=== PATIENT | female | born 1935 | race Caucasian/White ===

== ENCOUNTER → 2017-01-05 | Outpatient (CLI) | payer MEDICARE ==
[~2017-01-05] MED LIST: AMIT150T; KCL20TCR PO; MECL-124 PO; METH4TAB PO; NAPR-243 PO; NITR-65 PO; TRM50T PO
--- NOTE | 2017-01-05 15:09 | Diagnostic Imaging Report ---
INDICATION: Left-sided maxillary pain. TECHNIQUE: Routine non contrast-enhanced axial images were obtained from the skull base to the vertex. COMPARISON: 05/29/2010 FINDINGS: The ventricles and cortical sulci are diffusely prominent, compatible with age-related volume loss. There are confluent areas of abnormal, low attenuation in the periventricular white matter. This is consistent with chronic small vessel ischemic changes. There is no midline shift or mass-effect. No acute intra-axial hemorrhage is seen. There are no abnormal areas of increased or decreased density to suggest acute hemorrhage or edema. No extra-axial masses or collections are present. The bony calvarium is intact. The visualized paranasal sinuses are unremarkable. The mastoid air cells are clear. IMPRESSION: 1. No acute intracranial abnormality. No CT evidence of mass, acute infarct or intracranial hemorrhage. 2. Chronic small vessel ischemic changes in the deep white matter. Dictated by: Dictated on workstation # [id number]
== END ==
LOC: RAD 14:06
PROVIDERS: ATTEND Internal Medicine
DX: R51 Headache (principal); R20.0 Anesthesia of skin
CPT/HCPCS: 70450

== ENCOUNTER → 2017-05-12 | Outpatient (CLI) | payer MEDICARE ==
--- NOTE | 2017-05-12 18:35 | Diagnostic Imaging Report ---
INDICATION: Fall. Pain to the left second and third toes. FINDINGS: Three views of the left foot show no fracture, dislocation, or other acute bony abnormality. There are advanced degenerative changes at the metatarsophalangeal joint of the first digit. IMPRESSION: There are degenerative changes present. No acute abnormality is seen. Dictated by: Dictated on workstation # [id number]
== END ==
LOC: RAD 17:17
PROVIDERS: ATTEND Nurse Practitioner Family
DX: M19.072 Primary osteoarthritis, left ankle and foot (principal)
CPT/HCPCS: 73630

== ENCOUNTER 2017-07-29 14:44 | Outpatient (CLI) | payer MEDICARE ==
[~2017-07-29] VITALS: Ht 162.6 cm; Wt 64.2 kg
[2017-07-29] MEDS ORDERED: AMIT25TA9 PO (15:09)
[2017-07-29 15:13] VITALS: BP 129/74
[2017-07-29] MEDS ORDERED: TRAM50TA2 PO (15:29)
[2017-07-29] MEDS ORDERED: LORA0.5T PO (15:29)
== END 2017-07-29 15:51 | disposition home or self-care (01) ==
LOC: PREOP 14:44
PROVIDERS: ATTEND Podiatrist Foot & Ankle Surgery
DX: Z01.818 Encounter for other preprocedural examination (principal); M86.642 Other chronic osteomyelitis, left hand
CPT/HCPCS: 87081

== ENCOUNTER 2017-07-31 06:08 | Day surgery (SDC) | payer MEDICARE ==
--- NOTE | 2017-07-30 12:31 | HISTORY AND PHYSICAL ---
DATE OF SERVICE: 07/31/2017 PREOPERATIVE HISTORY AND PHYSICAL DATE OF ADMISSION: 07/31/2017. HISTORY OF PRESENT ILLNESS: The patient is an 82-year-old white female, seen in my office on 07/29/2017 for preop evaluation for Dr. Samuel. She has had a sore on distal left second toe with x-ray findings suspicious for osteomyelitis. She denies night sweats, chills or fever, but has had increasing fatigue. She has no known history of peripheral neuropathy or diabetes. She denies chest pain, has had increased fatigue, but not dyspnea on exertion. PAST MEDICAL HISTORY: Significant for depression, which has been under control, we have actually been able to taper her amitriptyline down significantly over the years. She reports sleeping well and reports her depression is in remission. In the past, she has had hypertension, but with weight loss, she is now off all antihypertensive medication. She has no known past history of pulmonary or cardiac disease. SOCIAL HISTORY: She is independent, living alone at home. PHYSICAL EXAMINATION: GENERAL: Reveals a pleasant elderly white female, who appears to be in no acute distress. VITAL SIGNS: Blood pressure 128/78, weight is 140.4 pounds, is down 1.6 pounds, but still in her usual weight range. CHEST: Clear. CARDIOVASCULAR: Reveals regular rate and rhythm without murmur, S3 or S4. She has no evidence for pedal edema and no foot erythema or tenderness is noted. EXTREMITIES: Show no cyanosis or clubbing either. LABORATORY DATA: Blood tests were obtained. She does have mild ALT and AST elevation that has been intermittent and in review of her records, I believe that she has had negative hepatitis profile studies and is at low risk. Findings are most compatible with fatty liver disease as she reports no alcohol history. Her CBC reveals no abnormalities and interestingly, her sed rate is only 10. TSH is at the upper limits of normal at 4.62. ASSESSMENT AND PLAN: 1. Reported osteomyelitis per x-ray evaluation per Dr. Samuel involving the second left toe, there are no contraindications to proceeding with the planned partial second distal left toe amputation. 2. 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 Chronic viral Hepatitis unlikely but will check viral screening panel. Job ID: [id number] DocumentID: [id number] Dictated Date: 07/29/2017 16:39:08 Manager Clinical Pharmacy Date: 07/29/2017 17:31:41 Dictated By: PAZ SANDHU MD MTDD
[~2017-07-31] VITALS: Ht 162.6 cm; Wt 64.2 kg
[~2017-07-31 06:08] MED LIST changes: +AMIT25TA9 PO; +LORA0.5T PO; +TRAM50TA2 PO
[2017-07-31] MEDS ORDERED: LACTATED RINGERS 1,000 ML IV PRN (06:40)
[2017-07-31] MEDS ORDERED: BUPIVACAINE 0.5% 30 ML (SENSORCAINE) VIAL ONE (06:52)
[2017-07-31] MEDS ORDERED: ceFAZolin 1,000 MG (ANCEF) VIAL ONE (06:52)
[2017-07-31] MEDS ORDERED: NS (IVPB) 50 ML ONE (06:53)
[2017-07-31] MEDS ORDERED: LIDOCAINE PF 2% 5 ML (XYLOCAINE) VIAL ONE (06:56)
[2017-07-31] MEDS ORDERED: proPOfol 200 MG/20 ML (DIPRIVAN) VIAL IV ONE (06:56)
[2017-07-31] MEDS: LACTATED RINGERS 1,000 ML IV PRN ×2 (06:56→08:00)
[2017-07-31] MEDS ORDERED: MIDAZOLAM 2 MG/2 ML (VERSED) VIAL ONE (06:56)
[2017-07-31] MEDS ORDERED: ONDANSETRON 4 MG/2 ML (SDV) Z0FRAN ONE (06:56)
[2017-07-31] MEDS ORDERED: ROCURONIUM 50 MG/5 ML (ZEMURON) VIAL IV ONE (06:56)
[2017-07-31] MEDS ORDERED: LIDOCAINE JELLY 2% (XYLOCAINE) 5 ML TUBE ONE (06:56)
[2017-07-31] MEDS ORDERED: LACTATED RINGERS 0 ML IV ONE (06:56)
[2017-07-31] MEDS ORDERED: fentaNYL INJECTION 100 MCG/2 ML AMP ONE (06:57)
--- NOTE | 2017-07-31 07:01 | Progress Note-Pre Operative ---
Pre-Operative Progress Note H&P Reviewed The H&P was reviewed, patient examined and no changes noted. Date Seen by Provider: Jul 31, 2017 Time Seen by Provider: 07:00 Date H&P Reviewed: Jul 31, 2017 Time H&P Reviewed: 07:01 Pre-Operative Diagnosis: Osteomyelitis left 2nd toe ORQUIDEA KHAN DPM Jul 31, 2017 7:01 am
[2017-07-31] MEDS ORDERED: CATHETER FLUSH 10 ML SYR IV PRN (07:15)
[2017-07-31] MEDS ORDERED: ceFAZolin 1 GM/NS 50 ML IVPB IV ONE ×2 (07:15)
[2017-07-31 07:20] VITALS: BP 165/93
[2017-07-31] MEDS ORDERED: SEVOFLURANE (ULTANE) 15 ML INHAL SOLN ONE ×3 (07:23→07:42)
[2017-07-31] MEDS ORDERED: PHENYLEPHRINE 100 MCG/ML 10 ML (ANESTHESIA) SYR ONE (07:58)
[2017-07-31] MEDS ORDERED: LACTATED RINGERS 1,000 ML IV SCH ×2 (07:58)
--- NOTE | 2017-07-31 07:58 | Progress Note-Post Operative ---
Post-Operative Progess Note Surgeon (s)/Medical Record Coder (s) Surgeon ORQUIDEA KHAN DPM Medical Record Coder: none Pre-Operative Diagnosis Osteomyelitis left 2nd toe Post-Operative Diagnosis same Procedure & Operative Findings Date of Procedure 07/31/17 Procedure Performed/Findings Partial amputation of the left 2nd toe Anesthesia Type general Estimated Blood Loss Estimated blood loss (mL): minimal Specimens/Packing Specimens Removed left 2nd distal phalanx and distal portion of the middle phalanx Packing: none ORQUIDEA KHAN DPM Jul 31, 2017 7:58 am
[2017-07-31] MEDS ORDERED: morphine INJ 10 MG/ML 1ML (SYR OR VIAL) IVP PRN (08:15)
[2017-07-31] MEDS ORDERED: ONDANSETRON 4 MG/2 ML (SDV) Z0FRAN IVP PRN (08:15)
[2017-07-31] MEDS ORDERED: MEPERIDINE (DEMEROL) INJ 50 MG/ML IVP PRN (08:15)
[2017-07-31 09:00] VITALS: BP 133/79
--- NOTE | 2017-07-31 09:02 | Diagnostic Imaging Report ---
INDICATION: Postop evaluation COMPARISON: 05/12/2017 FINDINGS: Two views of the left foot are obtained. There are new postoperative changes of amputation of the second toe at the level of the middle phalanx. No additional new abnormality or interval change is seen from the recent prior study. There are severe degenerative changes with hallux valgus deformity and bunion formation at the first MTP joint similar to the prior exam. Degenerative spurring of the interphalangeal joints and of the midfoot also appears similar to the prior study. Spurring of the os calcis again demonstrated. IMPRESSION: 1. New postoperative changes of amputation through the second toe at the level of the middle phalanx without evidence of complicating process. 2. Diffuse degenerative changes are similar to the recent prior study. Dictated by: Dictated on workstation # [id number]
--- OUTSIDE RECORDS SUMMARY | 2017-07-31 09:10 | XMS REPORT | Continuity of Care Document ---
Author Author [facility] Organization [facility] Address Unknown Phone Unavailable Allergies Active Description Code Type Severity Reaction Onset Reported/Identified Relationship to Patient Clinical Status Yes codeine [id number] Drug Allergy Mild N/A 02/27/2009 Yes Sulfa (Sulfonamide Antibiotics) [id number] Drug Allergy Mild N/A 02/27/2009 Medications Problems Date Dx Coded Attending Type Code Diagnosis Diagnosed By 03/02/2013 TATY CLOUD DO Ot 716.97 ARTHROPATHY NOS-ANKLE 03/02/2013 TATY CLOUD DO Ot 719.07 JOINT EFFUSION-ANKLE 08/01/2013 EDGAR MIRANDA DO V04.81 FLU SHOT 01/06/2017 PAZ SANDHU MD Ot R20.0 ANESTHESIA OF SKIN 01/06/2017 PAZ SANDHU MD Ot R51 HEADACHE 01/07/2017 PAZ SANDHU MD Ot R20.0 ANESTHESIA OF SKIN 01/07/2017 PAZ SANDHU MD Ot R51 HEADACHE 02/06/2017 PAZ SANDHU MD Ot R20.0 ANESTHESIA OF SKIN 02/06/2017 PAZ SANDHU MD Ot R51 HEADACHE 05/12/2017 PAZ SANDHU MD Ot V76.12 OTH SCREEN MAMMO-MALIGN NEOPLASM OF EJRRY 05/12/2017 PAZ SANDHU MD Ot R20.0 ANESTHESIA OF SKIN 05/12/2017 PAZ SANDHU MD Ot R51 HEADACHE 05/16/2017 THAD GUILLEN APRN Ot M19.072 PRIMARY OSTEOARTHRITIS, LEFT ANKLE AND F 06/03/2017 THAD GUILLEN APRN Ot M19.072 PRIMARY OSTEOARTHRITIS, LEFT ANKLE AND F Procedures Code Description Performed By Performed On G0008 FLU ADMINISTRATION (MEDICARE ONLY) 08/01/2013 Results Encounters ACCT No. Visit Date/Time Discharge Status Pt. Type Provider Facility Loc./Unit Complaint [id number] 05/12/2017 17:17:00 2016 23:59:59 CLS Outpatient THAD GUILLEN APRN [facility] RAD RIGHT FOOT PAIN [id number] 01/05/2017 14:06:00 2016 23:59:59 CLS Outpatient PAZ SANDHU MD [facility] RAD L MAXILLARY PAIN L SIDED NUMBNESS [id number] 02/02/2014 07:46:00 2013 23:59:59 CLS Outpatient PAZ SANDHU MD [facility] RAD SCREENING [id number] 03/02/2013 17:01:00 2012 23:59:59 CLS Outpatient [id number] 03/02/2013 17:30:00 2012 20:05:00 DIS Emergency TATY CLOUD DO [facility] ER SWOLLEN R ANKLE [id number] 08/01/2013 17:57:00 08/01/2013 23: 59:59 CLS Outpatient EDGAR MIRANDA DO
--- OUTSIDE RECORDS SUMMARY | 2017-07-31 09:10 | XMS REPORT ---
Author EDGAR Adhikari Organization [employer] Address Unknown Phone Unavailable Care Team Providers Care Electronics Hardware Design Engineer Name Role Phone EDGAR MIRANDA CP Unavailable Allergies No Known Allergies Problems Problem Type Condition Code Onset Dates Condition Status Assessment Encounter for immunization Z23 Active Problem Need for prophylactic vaccination and inoculation, Influenza V04.81 Active Medications No Known Medications Procedures Procedure Coding System Code Date SINGLE IMMUNIZATION ADMIN CPT-4 43866 Oct 03, 2015 FLUARIX QUAD (3 & UP)-GSK-2014 CPT-4 58997 Oct 03, 2015 Results No Known Results Immunizations Vaccine Administration Date FLUARIX QUAD (3 & UP)-GSK-2014Oct 03, 2015 Summary Purpose [employer] Submission
[2017-07-31 09:30] VITALS: BP 129/71
[2017-07-31 10:00] VITALS: BP 133/73
--- NOTE | 2017-07-31 11:09 | Physical Therapy Ortho Eval ---
PT Orthopedic Evaluation Type of Surgery osteomyelitis left foot Prior Level of Function Current Living Status: Alone Locomotion (Upon Admit): Doris Mccarthy Subjective Subjective Reports she lives alone but has neighbors that will assist; feels she will be able to manage at home; reports she bought easy to warm items at the grocery prior to surgery. Entry Into Home: Stairs With Railing Motor Control Motor Control: Motor Control WNL ROM ROM: WFL Strength Strength: WFL Transfer Transfers (B, C, W/C) (FIM): 5 (post treatment, mod indep) Gait Gait Assistive Device: FWW Right Lower Extremity: Right Weight Bearing Status RLE: Full Weight Bearing Left Lower Extremity: Left Weight Bearing Status LLE: Partial Weight Bearing Gait (FIM): 5 Distance (FIM): 3=150 ft Gait Level of Assist: 5 Summary/Comments skilled cueing and reminders for PWB status with explanation as to why it is important; pt verbalized and demonstrated understanding. Treatment Rendered Treatment: Gait Train, Step Train Assessment/Goals Goal Time Frame: 1 Visit Plan Treatment Plan: Discharge, Education, Gait Treatment Duration: 1 visit PT/Family Agrees to Plan: Yes Time Time In: 1015 Time Out: 1035 Total Billed Treatment Time: 20 Billed Treatment Time visit EVL 20 Yes PT/OT Therapy GCodes Therapy Functional Limitation: Physical Therapy Test(s)/Tool used to determine: Level of Assistance Scale Functional Limitation-Current Charge Code: MOBCUR Modifier: CJ Functional Limitation-Goal Charge Code: MOBGOAL Modifier: CI Functional Limitation-D/C Charge Codes: MOBDC Modifier: CI TAMIKO CHAPIN PT Jul 31, 2017 11:09
--- NOTE | 2017-07-31 15:55 | OPERATIVE REPORT ---
DATE OF SERVICE: 07/31/2017 SURGEON: Tracee Samuel DPM PREOPERATIVE DIAGNOSIS: Osteomyelitis, left 2nd toe. POSTOPERATIVE DIAGNOSIS: Osteomyelitis, left 2nd toe. PROCEDURE: Partial amputation, left second toe. WOUND CLASS: Contaminated. ANESTHESIA: General. HEMOSTASIS: Pneumatic ankle tourniquet at 250 mmHg. INDICATIONS: This 82-year-old female presented to the office with an open wound to the left second toe. X-ray changes noted to the distal phalanx indicated osteomyelitis. Various treatment options were discussed with the patient including long-term antibiotics as well as partial amputation of the left second toe. The patient has opted for surgical intervention after risks and complications were discussed at length. No guarantees were extended to the patient and she is willing to proceed. DESCRIPTION OF PROCEDURE: The patient was brought back to the operating table placed in secure supine position. Appropriate time out was performed. A pneumatic ankle tourniquet was placed on the left lower extremity over several layers of padding. General anesthetic was then induced. The left foot was then prepped and draped in normal sterile manner. The left foot was then elevated and allowed to exsanguinate after which the tourniquet was inflated to 250 mmHg. Attention was then directed to the distal aspect of left second toe, where full-thickness ulceration was noted to the distal aspect of the digit. Two curvilinear incisions were created. The first was mid diaphysis of the middle phalanx from the dorsal aspect of the toe from medial to lateral, the second began at the same area and went to the distal aspect creating a plantar flap. The distal phalanx was disarticulated at this point with sharp dissection down to bone. The specimen was sent for gross and microscopic evaluation. Prior to being sent; however, a sample of the distal phalanx bone was taken and sent for culture and sensitivity. Next, a section of bone was taken from the middle phalanx with a power sagittal saw. This specimen was also sent to confirm appropriate bone at this point. There is no yvette necrosis or abscess associated with the digit at this time. The wound was flushed with copious amounts of normal saline. Prior to closure, a swab culture was taken of the remaining digit, left second toe. Closure was then performed with 4-0 Prolene in a simple interrupted type stitch. The tourniquet was released noting appropriate cap refill time to all digits of the left foot. It did take some time for the capillary refill time to come into normal limits for the flap of the amputation left second toe. Direct postoperative injection consisted of 5 mL of 0.5% Marcaine injected in a digital block. Postoperative dressing consisted of Betadine soaked Adaptic, sterile 4 x 4, sterile Kerlix; all secured with a Coban wrap. The patient is currently on an oral antibiotic. She will continue with that. She was given a prescription for tramadol as well. She will follow up in my office in 10 days' period of time or sooner if necessary. Job ID: [id number] DocumentID: [id number] Dictated Date: 07/31/2017 08:11:53 Facility Maintenance Helper Date: 07/31/2017 14:54:33 Dictated By: BRENT GREENE
== END 2017-07-31 11:30 | disposition home or self-care (01) ==
LOC: SDC 06:08
PROVIDERS: ATTEND Podiatrist Foot & Ankle Surgery
DX: M86.9 Osteomyelitis, unspecified (principal); I10 Essential (primary) hypertension; F32.9 Major depressive disorder, single episode, unspecified; Z79.899 Other long term (current) drug therapy
CPT/HCPCS: 73620; 87070; 87075; 87205

== ENCOUNTER 2019-07-03 10:15 | Emergency (ER) | payer MEDICARE ==
[~2019-07-03] VITALS: Ht 64 cm; Wt 61.0 kg
[2019-07-03 10:20] VITALS: BP 188/102
[2019-07-03] MEDS ORDERED: FLUORESCEIN (FLUOR-I-STRIPS) 1 MG STRP ONE (10:35)
[2019-07-03] MEDS ORDERED: TETRACAINE 0.5% OPHTH SOLN 4 ML BTL (SINGLE DOSE ONLY) ONE (10:35)
[2019-07-03] MEDS ORDERED: TETRACAINE 0.5% OPHTH SOLN 4 ML BTL (SINGLE DOSE ONLY) OU ONE (10:45)
[2019-07-03] MEDS ORDERED: FLUORESCEIN (FLUOR-I-STRIPS) 1 MG STRP OU ONE (10:45)
[2019-07-03] MEDS ORDERED: RX-TOBRAMYCIN 0.3% OPHTH (TOBREX) SOLN 5 ML BTL OP STA (11:16)
--- NOTE | 2019-07-03 11:25 | ED EENT ---
History of Present Illness General Chief Complaint: Eye Problems Stated Complaint: R EYE REDNESS Nursing Triage Note: PT CO OF R EYE REDNESS, PT STATES STARTED ITCHING YESTERDAY, PT HAS REDDNESS AND BLURRED VISION TODAY PT STATES HAS PAIN IN EYE Source: patient Exam Limitations: no limitations History of Present Illness Date Seen by Provider: Jul 03, 2019 Time Seen by Provider: 10:36 Initial Comments Here with complaint of redness and irritation to the right eye. Noted that she had itching of the eye yesterday. Does not recall any specific injury. She does have history of shingles on that side of the face last year but no active spots. She thought there may have been some bumps that are on the side of her face. Does not believe that she has an active infection. Denies discharge. Denies vision changes. Pain seems to be centered around that eye. Timing/Duration: gradual, yesterday Severity: moderate Location: eye (R) Prearrival Treatment: no prearrival treatment Associated Symptoms: facial pain/swelling; No fever, No nasal congestion/drainage, No sinus infection, No tooth pain Allergies and Home Medications Allergies Coded Allergies: Sulfa (Sulfonamide Antibiotics) (Unverified Allergy, Mild, 07/29/17) codeine (Unverified Allergy, Mild, 07/29/17) Home Medications Amitriptyline HCl 25 Mg Tablet, 25 MG PO HS, (Reported) Lorazepam 0.5 Mg Tablet, 0.5 MG PO PRN, (Reported) Tramadol HCl 50 Mg Tablet, 50 MG PO PRN, (Reported) Patient Home Medication List Home Medication List Reviewed: Yes Review of Systems Review of Systems Constitutional: No chills, No fever Eyes: See HPI; Denies Decreased Acuity, Denies Photophobia Nose: no symptoms reported Throat: no symptoms reported Respiratory: no symptoms reported Skin: no symptoms reported Neurological: No Symptoms Reported Past Nsdhrwq-Oojkem-Iqpnaa Hx Past Med/Social Hx: Reviewed Nursing Past Med/Soc Hx Patient Social History Alcohol Use: Denies Use Recreational Drug Use: No Smoking Status: Never a Smoker Recent Foreign Travel: No Contact w/Someone Who Travel: No Recent Infectious Disease Expo: No Recent Hopitalizations: No Immunizations Up To Date Tetanus Booster (TDap): Unknown Date of Pneumonia Vaccine: February 02, 2009 Date of Influenza Vaccine: Jul 13, 2017 Seasonal Allergies Seasonal Allergies: No Past Medical History Surgeries: Yes (BACK, RT FOOT, RIGHT TOTAL SHOULDER, TOTAL LT KNEE) Appendectomy Respiratory: No Cardiac: No Neurological: No Reproductive Disorders: No Sexually Transmitted Disease: No HIV/AIDS: No Gastrointestinal: No Musculoskeletal: Yes Arthritis Endocrine: No Loss of Vision: Bilateral Hearing Impairment: Denies 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 7.0oz. 64.653871gt; 148.00 BMI Method:Stated General Appearance: WD/WN, no apparent distress Eyes: right eye conjunctival inflammation, right eye corneal abrasion (3 x 3 mm in the lateral lower quadrant of the eye. Does not cover pupil.); bilateral eye normal inspection, bilateral eye PERRL, bilateral eye EOMI Neck: full range of motion, supple Cardiovascular: regular rate, rhythm, no murmur Respiratory: lungs clear, normal breath sounds Neurologic/Psychiatric: alert, oriented x 3 Progress/Results/Core Measures Results/Orders My Orders Orders - FRANCK MARTINEZ MD Tetracaine 0.5% Ophth Shelby Sdv (Tetracai (07/03/19 10:45) Fluorescein Strips (Yreok-M-Ntpyax) (07/03/19 10:45) Fluorescein Strips (Qxhco-X-Zphtke) (07/03/19 10:35) Tetracaine 0.5% Ophth Shelby Sdv (Tetracai (07/03/19 10:35) Rx-Tobramycin Ophth Drops (Rx-Tobrex 0.3 (07/03/19 11:16) Medications Given in ED Current Medications Medications Dose Ordered Sig/Amalia Route Start Time Stop Time Status Last Admin Dose Admin Fluorescein Sodium 1 mg ONCE ONCE OU 07/03/19 10:45 07/03/19 10:46 DC 07/03/19 10:43 1 MG Tetracaine HCl 4 ml ONCE ONCE OU 07/03/19 10:45 07/03/19 10:46 DC 07/03/19 10:43 4 ML Vital Signs/I&O 07/03/19 10:20 Temp 36.9 Pulse 74 Resp 18 B/P (MAP) 188/102 (130) Pulse Ox 98 Blood Pressure Mean: 130 Progress Progress Note : Progress Note Seen and evaluated. Pancho-Pen measurement after tetracaine drops shows left eye at 17 and right eye 21. Fluorescein stain to the right eye shows the corneal abrasion. I did make contact with Dr. Palencia and we discussed findings. We will go ahead and initiate TobraDex eyedrops as this appears to be self-inflicted and not vegetative. She has requested that the patient call her clinic in the morning to be seen same day. She is requested that I give her cell phone number which will be done. Findings concerns discussed with the patient who agrees with plan. Discharged home with return precautions. Patient verbalize understanding instructions and agreement with plan. Tetanus updated. Departure Impression Primary Impression: Corneal abrasion Qualified Codes: S05.01XA - Injury of conjunctiva and corneal abrasion without foreign body, right eye, initial encounter Disposition: HOME, SELF-CARE Condition: Improved Departure-Patient Inst. Decision time for Depature: 11:29 Referrals: PAZ SANDHU MD (PCP/Family) Primary Care Physician Patient Instructions: Corneal Abrasion (DC) Add. Discharge Instructions: All discharge instructions reviewed with patient and/or family. Voiced understanding. Use eyedrops as directed. You need to be seen at the [facility] tomorrow. You may call the clinic in the morning for appointment but the phones may not be on as they are in a training session. If no one answers, please call Dr. Palencia on her cell phone at [phone] and she will start you on time to come to the clinic for evaluation. Return for worse pain, vision problems, weakness, fever or other concerns as needed. FRANCK MARTINEZ MD Jul 03, 2019 11:25
[2019-07-03] MEDS ORDERED: TETANUS,DIPTH,PERTUSS P/F (BOOSTRIX) 0.5 ML VIAL IM ONE (11:30)
== END 2019-07-03 11:53 | disposition home or self-care (01) ==
LOC: EDUNIT# 10:15 → ER 10:16
DX: S05.01XA Injury of conjunctiva and corneal abrasion without foreign body, right eye, initial encounter (principal); Z88.2 Allergy status to sulfonamides; Z88.5 Allergy status to narcotic agent; Z90.49 Acquired absence of other specified parts of digestive tract; Z85.828 Personal history of other malignant neoplasm of skin; X58.XXXA Exposure to other specified factors, initial encounter
CPT/HCPCS: 90471; 90715; 99282

== ENCOUNTER 2019-08-27 07:53 | Emergency (ER) | payer MEDICARE ==
[~2019-08-27] VITALS: Ht 162 cm; Wt 57.7 kg
[~2019-08-27 07:53] MED LIST changes: +TRANEXAMIC ACID 100 MG/ML 10 ML INJECTION IV ONE
[2019-08-27] MEDS ORDERED: ONDANSETRON 4 MG/2 ML (SDV) Z0FRAN ONE (08:06)
[2019-08-27 08:13] LABS: BASOPHILS % (AUTO) 0 % (0-10); EOSINOPHILS # (AUTO) 0.2 10^3/uL (0.0-0.3); EOSINOPHILS % (AUTO) 2 % (0-10); HEMATOCRIT 40 % (35-52); LYMPHOCYTES # (AUTO) 3.4 X 10^3 (1.0-4.0); LYMPHOCYTES % (AUTO) 23 % (12-44); MEAN CORPUSCULAR HEMOGLOBIN 29 PG (25-34); MEAN CORPUSCULAR HGB CONC 33 G/DL (32-36); MEAN CORPUSCULAR VOLUME 90 FL (80-99); MONOCYTES # (AUTO) 0.9 X 10^3 (0.0-1.0); MONOCYTES % (AUTO) 6 % (0-12); NEUTROPHILS # (AUTO) 9.9 X 10^3 (1.8-7.8); NEUTROPHILS % (AUTO) 69 % (42-75); PLATELET COUNT 267 10^3/uL (130-400); RED CELL DISTRIBUTION WIDTH 13.6 % (10.0-14.5); WHITE BLOOD COUNT 14.4 10^3/uL (4.3-11.0)
[2019-08-27] MEDS ORDERED: ONDANSETRON 4 MG/2 ML (SDV) Z0FRAN IVP ONE (08:15)
[2019-08-27] MEDS ORDERED: TRANEXAMIC ACID INJECTION 1,000 MG in NS (IVPB) 250 ML IV SCH (08:15)
[2019-08-27] MEDS ORDERED: TRANEXAMIC ACID INJECTION 1,000 MG in NS (IVPB) 100 ML IV ONE (08:15)
[2019-08-27] MEDS ORDERED: LORA1TAB (08:18)
[2019-08-27] MEDS ORDERED: AMIT10TA6 (08:18)
[2019-08-27 08:26] LABS: INR 1.2 (0.8-1.4); PROTHROMBIN TIME PATIENT 15.7 SEC (12.2-14.7)
[2019-08-27 08:29] LABS: BAND NEUTROPHILS 0 %; BASOPHILS % (MANUAL) 0 %; EOSINOPHILS % (MANUAL) 2 %; LYMPHOCYTES % (MANUAL) 22 %; MONOCYTES % (MANUAL) 4 %; NEUTROPHILS % (MANUAL) 72 %; RBC MORPH NORMAL
[2019-08-27] MEDS ORDERED: SCOPOLAMINE 1.5 MG (TRANSDERM-SCOP) PATCH TD ONE ×2 (08:30)
[2019-08-27 08:34] LABS: ALANINE AMINOTRANSFERASE 22 U/L (0-55); ALBUMIN 4.1 GM/DL (3.2-4.5); ALKALINE PHOSPHATASE 73 U/L (40-136); BILIRUBIN,TOTAL 0.6 MG/DL (0.1-1.0); BUN/CREATININE RATIO 15; CALCIUM 9.7 MG/DL (8.5-10.1); CARBON DIOXIDE 22 MMOL/L (21-32); CHLORIDE 107 MMOL/L (98-107); CREATININE SERUM 1.29 MG/DL (0.60-1.30); GFR ESTIMATED 39; GLUCOSE 133 MG/DL (70-105); MAGNESIUM 1.7 MG/DL (1.6-2.4); POTASSIUM 3.7 MMOL/L (3.6-5.0); SODIUM 142 MMOL/L (135-145); TOTAL PROTEIN 7.4 GM/DL (6.4-8.2)
[2019-08-27] MEDS ORDERED: OXYMETAZOLINE (AFRIN) 0.05% NA 15 ML BTL SCH (09:00)
[2019-08-27] MEDS ORDERED: NS IV 1000 ML 1,000 ML IV SCH (09:00)
[2019-08-27] MEDS ORDERED: NS IV 1000 ML 1,000 ML ONE (09:03)
[2019-08-27] MEDS ORDERED: LORazepam INJ 2 MG/ML (ATIVAN) VIAL ONE (09:11)
[2019-08-27] MEDS ORDERED: cefTRIAXone 2 GM IV (ROCEPHIN) VIAL ONE (09:12)
[2019-08-27] MEDS ORDERED: WATER (STERILE) FOR INJECTION 20 ML ONE (09:12)
--- NOTE | 2019-08-27 09:12 | ED Fall/Injury ---
General Stated Complaint: SYNCOPE / FALL Source: patient, EMS Exam Limitations: no limitations History of Present Illness Date Seen by Provider: Aug 27, 2019 Time Seen by Provider: 07:54 Initial Comments This 84-year-old woman presents to the emergency room via EMS with facial injury after a fall. She believes she had a syncopal episode. She woke up on the floor with a significant amount of blood around her. She has notable injuries to the face including bruising around the nose and eyes and a laceration on the left nasal bridge. Patient reports no significant medical problems. She denies any use of blood thinning agents. She is alert and oriented. She does not appear to have any focal neurologic deficits. She was ambulatory at the scene. She has chronic neck pain but denies any new pain from trauma. She denies any chest pain or shortness of breath. Allergies and Home Medications Allergies Coded Allergies: Sulfa (Sulfonamide Antibiotics) (Unverified Allergy, Mild, 07/29/17) codeine (Unverified Allergy, Mild, 07/29/17) Home Medications Amitriptyline HCl 25 Mg Tablet, 25 MG PO HS, (Reported) Lorazepam 0.5 Mg Tablet, 0.5 MG PO PRN, (Reported) Tramadol HCl 50 Mg Tablet, 50 MG PO PRN, (Reported) Patient Home Medication List Home Medication List Reviewed: Yes Review of Systems Review of Systems Constitutional: no symptoms reported Eyes: See HPI Ears, Nose, Mouth, Throat: see HPI Respiratory: no symptoms reported Cardiovascular: no symptoms reported Gastrointestinal: no symptoms reported Genitourinary: no symptoms reported : No Musculoskeletal: see HPI Skin: see HPI Psychiatric/Neurological: No Symptoms Reported Past Krwkcsx-Lvqxqa-Dnkvbm Hx Past Med/Social Hx: Reviewed Nursing Past Med/Soc Hx Patient Social History Recent Foreign Travel: No Contact w/Someone Who Travel: No Recent Hopitalizations: No Immunizations Up To Date Tetanus Booster (TDap): Unknown Date of Pneumonia Vaccine: February 02, 2009 Date of Influenza Vaccine: Jul 13, 2017 Seasonal Allergies Seasonal Allergies: No Past Medical History Surgeries: Yes (BACK, RT FOOT, RIGHT TOTAL SHOULDER, TOTAL LT KNEE) Appendectomy Respiratory: No Cardiac: No Neurological: No Reproductive Disorders: No Sexually Transmitted Disease: No HIV/AIDS: No Gastrointestinal: No Musculoskeletal: Yes Arthritis Endocrine: No Loss of Vision: Bilateral Hearing Impairment: Denies 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 7.0oz. 64.146908dx; 148.00 BMI Method:Stated General Appearance: WD/WN, no apparent distress HEENT: PERRL/EOMI, TMs normal, other (there is extensive bruising and ecchymosis surrounding the nose. There is active epistaxis from the right naris. There is red blood in the oropharynx. There is a laceration on the left nasal bridge.) Neck: normal inspection, tender midline (mild at the upper posterior neck stated as chronic and unchanged) Cardiovascular: regular rate, rhythm, no edema, no murmur, systolic murmur Respiratory: lungs clear, normal breath sounds, no respiratory distress Gastrointestinal: normal bowel sounds, non tender, soft Extremities: normal inspection, no pedal edema, pelvis stable Neurologic/Psychiatric: kinesiology internship II-XII nml as tested, no motor/sensory deficits, alert, normal mood/affect, oriented x 3 Skin: normal color, warm/dry Dailey Coma Score Best Eye Response: (4) Open Spontaneously Best Verbal Response: (5) Oriented Best Motor Response: (6) Obeys Commands Dailey Total: 15 Progress/Results/Core Measures Results/Orders Lab Results Laboratory Tests Test 08/27/19 08:00 Range/Units White Blood Count 14.4 H 4.3-11.0 10^3/uL Red Blood Count 4.43 4.35-5.85 10^6/uL Hemoglobin 13.0 11.5-16.0 G/DL Hematocrit 40 35-52 % Mean Corpuscular Volume 90 80-99 FL Mean Corpuscular Hemoglobin 29 25-34 PG Mean Corpuscular Hemoglobin Concent 33 32-36 G/DL Red Cell Distribution Width 13.6 10.0-14.5 % Platelet Count 267 130-400 10^3/uL Mean Platelet Volume 11.0 H 7.4-10.4 FL Neutrophils (%) (Auto) 69 42-75 % Lymphocytes (%) (Auto) 23 12-44 % Monocytes (%) (Auto) 6 0-12 % Eosinophils (%) (Auto) 2 0-10 % Basophils (%) (Auto) 0 0-10 % Neutrophils # (Auto) 9.9 H 1.8-7.8 X 10^3 Lymphocytes # (Auto) 3.4 1.0-4.0 X 10^3 Monocytes # (Auto) 0.9 0.0-1.0 X 10^3 Eosinophils # (Auto) 0.2 0.0-0.3 10^3/uL Basophils # (Auto) 0.0 0.0-0.1 10^3/uL Neutrophils % (Manual) 72 % Lymphocytes % (Manual) 22 % Monocytes % (Manual) 4 % Eosinophils % (Manual) 2 % Basophils % (Manual) 0 % Band Neutrophils 0 % Blood Morphology Comment NORMAL Prothrombin Time 15.7 H 12.2-14.7 SEC INR Comment 1.2 0.8-1.4 Activated Partial Thromboplast Time 30 24-35 SEC Sodium Level 142 135-145 MMOL/L Potassium Level 3.7 3.6-5.0 MMOL/L Chloride Level 107 98-107 MMOL/L Carbon Dioxide Level 22 21-32 MMOL/L Anion Gap 13 5-14 MMOL/L Blood Urea Nitrogen 19 H 7-18 MG/DL Creatinine 1.29 0.60-1.30 MG/DL Estimat Glomerular Filtration Rate 39 BUN/Creatinine Ratio 15 Glucose Level 133 H 70-105 MG/DL Calcium Level 9.7 8.5-10.1 MG/DL Corrected Calcium 9.6 8.5-10.1 MG/DL Magnesium Level 1.7 1.6-2.4 MG/DL Total Bilirubin 0.6 0.1-1.0 MG/DL Aspartate Amino Transf (AST/SGOT) 35 H 5-34 U/L Alanine Aminotransferase (ALT/SGPT) 22 0-55 U/L Alkaline Phosphatase 73 40-136 U/L Troponin I < 0.028 <0.028 NG/ML Total Protein 7.4 6.4-8.2 GM/DL Albumin 4.1 3.2-4.5 GM/DL My Orders Orders - ALLIE LOTT MD Ct Head/Face/Cervical Wo (08/27/19 07:58) Cbc With Automated Diff (08/27/19 07:58) Comprehensive Metabolic Panel (08/27/19 07:58) Magnesium (08/27/19 07:58) Protime With Inr (08/27/19 07:58) Partial Thromboplastin Time (08/27/19 07:58) Troponin I (08/27/19 07:58) Ed Iv/Invasive Line Start (08/27/19 07:58) Ekg Tracing (08/27/19 07:58) Monitor-Rhythm Ecg Trace Only (08/27/19 07:58) Ns (Ivpb) (Sodium C... W/Tranexamic Acid (08/27/19 08:15) Tranexamic Acid Injection (Cyklokapron I (08/27/19 08:15) Ondansetron Injection (Zofran Injectio (08/27/19 08:15) Ondansetron Injection (Zofran Injectio (08/27/19 08:06) Manual Differential (08/27/19 08:00) Scopolamine Patch (Transderm-Scop Patch) (08/27/19 08:30) Scopolamine Patch (Transderm-Scop Patch) (08/27/19 08:30) Ua Culture If Indicated (08/27/19 08:44) Red Cells Leukocytes Reduced (08/27/19 08:44) Oxymetazoline 0.05% Nasal [place] (Afrin 0. (08/27/19 09:00) Type And Screen (08/27/19 08:44) Ceftriaxone For Iv Use (Rocephin For I (08/27/19 09:15) Fentanyl Injection (Sublimaze Injection (08/27/19 09:15) Ns Iv 1000 Ml (Sodium Chloride 0.9%) (08/27/19 09:03) Tranexamic Acid Injection (Cyklokapron I (08/27/19 07:53) Ceftriaxone For Iv Use (Rocephin For I (08/27/19 09:15) Lorazepam Injection (Ativan Injection) (08/27/19 09:15) Lorazepam Injection (Ativan Injection) (08/27/19 09:11) Water (Sterile) For Injection (Sterile W (08/27/19 09:12) Ceftriaxone For Iv Use (Rocephin For I (08/27/19 09:12) Ns (Ivpb) (Sodium Chloride 0.9%) (08/27/19 10:00) Fentanyl Injection (Sublimaze Injection (08/27/19 10:30) Ns (Ivpb) (Sodium Chloride 0.9%) (08/27/19 10:00) Ns Iv 1000 Ml (Sodium Chloride 0.9%) (08/27/19 09:00) Medications Given in ED Current Medications Medications Dose Ordered Sig/Amalia Route Start Time Stop Time Status Last Admin Dose Admin Ceftriaxone Sodium 2,000 mg STK-MED ONCE .ROUTE 08/27/19 09:12 08/27/19 09:14 DC 08/27/19 09:25 2,000 MG Fentanyl Citrate 25 mcg ONCE ONCE IVP 08/27/19 09:15 08/27/19 09:16 DC 08/27/19 09:25 25 MCG Fentanyl Citrate 25 mcg ONCE ONCE IVP 08/27/19 10:30 08/27/19 10:31 DC 08/27/19 10:30 25 MCG Lorazepam 0.25 mg ONCE ONCE IVP 08/27/19 09:15 08/27/19 09:16 DC 08/27/19 09:25 0.25 MG Ondansetron HCl 8 mg ONCE ONCE IVP 08/27/19 08:15 08/27/19 08:16 DC 08/27/19 08:16 8 MG Scopolamine 1.5 mg ONCE ONCE TD 08/27/19 08:30 08/27/19 08:31 DC 08/27/19 08:38 1.5 MG Sodium Chloride 250 ml @ 0 mls/hr Q0M ONCE IV 08/27/19 10:00 08/27/19 11:28 DC 08/27/19 10:20 0 MLS/HR Sterile Water 20 ml @ ud STK-MED ONCE .ROUTE 08/27/19 09:12 08/27/19 09:14 DC 08/27/19 09:26 200 MLS/HR Tranexamic Acid 1000 mg/Sodium Chloride 110 ml @ 330 mls/hr ONCE ONCE IV 08/27/19 08:15 08/27/19 08:34 DC 08/27/19 08:10 330 MLS/HR Vital Signs/I&O 08/27/19 08/27/19 08/27/19 07:53 10:36 10:44 Temp 36.6 36.6 36.6 Pulse 91 92 92 Resp 15 11 11 B/P (MAP) 121/86 (98) 146/83 146/83 Pulse Ox 96 95 95 O2 Delivery Room Air Room Air Room Air Progress Progress Note #1: Time: 09:15 Progress Note Patient was found to have facial fractures resulting in subcutaneous air in the face and neck as well as intracranial air. Patient is at high risk for CSF leak and intracranial infection. Rocephin 2 g has been ordered for initial empiric antibiotic prophylaxis. Bleeding control is being attempted with direct pressure by nasal clamp. TXA bolus has been infused and a drip is now being administered. Bleeding is fairly well controlled at this time. Transfer is being pursued and a call has been placed to [facility] in [place] to arrange transfer. Patient has felt dizzy and blood pressures have been low normotensive. A liter of IV fluid has been initiated and a type and cross of 2 units is pending. Nasal packing was not pursued due to the nasal and sinus fractures. I spoke with the radiologist about the CT images. There was also a Type II odontoid fracture. C-collar was applied. C-collar was not initially applied because patient stated she had no new neck pain and there was concerned about her vomiting and aspirating with the nausea she was experiencing. Nausea has been treated with Zofran 8 mg IV followed by a scopolamine patch. Pain has been treated with fentanyl 25 g IV. Anxiety has been treated with Ativan 0.25 mg. Progress Note #2: Time: 09:45 Progress Note Transfer to [facility] in [place] and [facility] has been attempted. Unfortunately, neither facility has the appropriate specialists available this weekend to care for our patient. I have a call out to [facility] at this time and am waiting room. Patient continues to have some bleeding from the nose. Epistaxis control has been attempted with Afrin spray and a Merocel packing. The Merocel could not be inserted very far due to swelling. The short Merocel packing remains in place but there is bleeding around it. At this point I prefer to give blood products rather than manipulate the face any further with attempts at packing. The TXA drip is still infusing. Progress Note #3: Time: 10:[address] Galo, trauma attending at [facility] has accepted transfer. [facility] is in route to tow picker the patient for transfer. We are still having issues with nasal bleeding. We will transfuse the 2 units of blood that have been crossmatched. The first unit is starting now. Blood pressure is stable with a systolic blood pressure around 140 after the 1 L of IV fluid. Chest x-ray has not been obtained as we are trying to keep patient still. Patient states she is up-to-date on her tetanus immunization. Progress Note #4: Time: 10:43 Progress Note Patient is now transferring via [facility] to [facility]. She is receiving her first unit of blood. Systolic blood pressure was 111. She received a second dose of fentanyl 25 g for pain management. The Merocel packing was removed and a clamp was replaced. This seemed to control bleeding better than the packing. The second unit of blood was sent with the flight crew to continue infusion Diagnostic Imaging Diagonstic Imaging: CT Plain Films/CT/US/NM/MRI: facial bones, c-spine, head Comments CT viewed by me and discussed with the radiologist. Report reviewed. See report below: NAME: KASHIF COLMENARES [facility] REC#: [id number] PT STATUS: REG ER : 1935 PHYSICIAN: ALLIE LOTT MD ADMIT DATE: 08/27/19/ER Draft Date of Exam:08/27/19 CT HEAD/FACE/CERVICAL WO PROCEDURE: CT head, face, and cervical spine without contrast. TECHNIQUE: Multiple contiguous axial images were obtained through the head, neck, and facial bones without the use of intravenous contrast. Sagittal and coronal reformations through the cervical spine and facial bones were also performed. Auto Exposure Controls were utilized during the CT exam to meet ALARA standards for radiation dose reduction. INDICATION: Fall, facial bruising, epistaxis. CT HEAD: There is a pneumocephalus along the falx anteriorly as well as at the floor of the left anterior cranial fossa. There is a small amount of gas within the cavernous sinuses as well as along the left carotid canal. The mastoid air cells and middle ear cavities clear. There is extensive hemo-sinus soft tissue gas and facial fractures discussed below. There is cerebral cortical atrophy and periventricular white matter small vessel disease. No intracerebral hemorrhage is found. No calvarial fracture deformity. CT CERVICAL SPINE: There is a transversely oriented fracture of the odontoid without angulation or displacement of the odontoid tip fragment. There is pannus about the degenerative C1-C2 level. The posterior degenerative soft tissues and calcifications result in a moderate degree of canal stenosis. The C1 ring was intact. No additional cervical fracture. Vascular calcifications of the carotids noted. The structures of the larynx appeared unremarkable. CT FACIAL BONES: There are fractures of the bilateral nasal bones comminuted as well as the nasal septum. Septal fractures also comminuted posterior inferiorly and anterosuperiorly. There is a 3 wall fractures of the bilateral maxillary sinuses with blood opacifying the maxillary sinuses blood within scattered ethmoid air cells, small amount of blood in the right frontal sinus and blood in the sphenoid sinuses. This appears to be a fracture of the lateral aspect of the left pterygoid plate. The remaining pterygoids appeared intact. The temporal mandibular joints are arthritic but not dislocated. The bony mandible showed no identifiable fracture. There is extensive soft tissue injury and gas about the right cheek. Pneumocephalus is again noted with air involving a partially aerated left petrous apices extending into the left carotid canal and cavernous sinuses as well as along the posterior aspect of the right orbital apex. No distortion of either globe. No post septal or retrobulbar hematoma there is preseptal orbital soft tissue swelling and hemorrhage. IMPRESSION: CT head: Posttraumatic pneumocephalus and hemo sinus. No skull fracture or intracerebral hemorrhage. CT cervical spine: Type II odontoid fracture without angulation or displacement of the distal tip. There is heredia-cervical degenerative changes. No additional cervical spinal fracture found. CT FACIAL BONES: Extensive nasal bone, nasal septal and maxillary wall fractures with severe paranasal hemo-sinus. Fractures of the ethmoid air cells are presumed. There is likely fracture of the posterolateral left sphenoid wall accounting for the pneumocephalus. Air tracks along the carotid canal on the left as well as in the cavernous sinus. In light of the cervical spine fracture as well as these findings, CT angiographic study of the neck and head recommended to exclude arterial injury. Fracture of the lateral plate of the left pterygoid. No identifiable temporal bone fracture. Pertinent results discussed by phone with the Emergency Room physician prior to this dictation. Dictated on workstation # [id number] Dict: 08/27/19 0853 Trans: 08/27/19 0935 [facility] [id number] Interpreted by: RADHA VELASQUEZ Departure Impression Primary Impression: Odontoid fracture with type II morphology Qualified Codes: S12.112A - Nondisplaced type ii dens fracture, initial encounter for closed fracture Additional Impressions: Facial fracture due to fall Qualified Codes: S02.92XB - Unspecified fracture of facial bones, initial encounter for open fracture; W19.XXXA - Unspecified fall, initial encounter Pneumocephalus, traumatic Fall on same level Qualified Codes: W18.30XA - Fall on same level, unspecified, initial encounter Epistaxis due to trauma Right wrist injury Qualified Codes: S69.91XA - Unspecified injury of right wrist, hand and finger(s), initial encounter Disposition: 02 XFER SHT-TRM HOSP Condition: Critical Transfer Transfer Reason: Exceeds level of care Time Spoke to Accepting Phy: 09:30 Transfer Progress Notes Transfer was accepted by the trauma attending, Dr. Galo, at [facility]. Transfer Time: 10:43 Transfer Facility: [facility] Method of Transfer: Air Departure-Patient Inst. Referrals: PAZ SANDHU MD (PCP/Family) Primary Care Physician Copy Copies To 1: PAZ SANDHU MD, JOSHUA T MD Aug 27, 2019 09:12 POS
[2019-08-27] MEDS ORDERED: fentaNYL INJECTION 100 MCG/2 ML AMP IVP ONE ×2 (09:15→10:30)
[2019-08-27] MEDS ORDERED: cefTRIAXone FOR IV USE 1,000 MG in WATER (STERILE) FOR INJECTION 10 ML IV ONE ×4 (09:15)
[2019-08-27] MEDS ORDERED: LORazepam INJ 2 MG/ML (ATIVAN) VIAL IVP ONE (09:15)
--- NOTE | 2019-08-27 09:35 | Diagnostic Imaging Report ---
PROCEDURE: CT head, face, and cervical spine without contrast. TECHNIQUE: Multiple contiguous axial images were obtained through the head, neck, and facial bones without the use of intravenous contrast. Sagittal and coronal reformations through the cervical spine and facial bones were also performed. Auto Exposure Controls were utilized during the CT exam to meet ALARA standards for radiation dose reduction. INDICATION: Fall, facial bruising, epistaxis. CT HEAD: There is a pneumocephalus along the falx anteriorly as well as at the floor of the left anterior cranial fossa. There is a small amount of gas within the cavernous sinuses as well as along the left carotid canal. The mastoid air cells and middle ear cavities clear. There is extensive hemo-sinus soft tissue gas and facial fractures discussed below. There is cerebral cortical atrophy and periventricular white matter small vessel disease. No intracerebral hemorrhage is found. No calvarial fracture deformity. CT CERVICAL SPINE: There is a transversely oriented fracture of the odontoid without angulation or displacement of the odontoid tip fragment. There is pannus about the degenerative C1-C2 level. The posterior degenerative soft tissues and calcifications result in a moderate degree of canal stenosis. The C1 ring was intact. No additional cervical fracture. Vascular calcifications of the carotids noted. The structures of the larynx appeared unremarkable. CT FACIAL BONES: There are fractures of the bilateral nasal bones comminuted as well as the nasal septum. Septal fractures also comminuted posterior inferiorly and anterosuperiorly. There is a 3 wall fractures of the bilateral maxillary sinuses with blood opacifying the maxillary sinuses blood within scattered ethmoid air cells, small amount of blood in the right frontal sinus and blood in the sphenoid sinuses. This appears to be a fracture of the lateral aspect of the left pterygoid plate. The remaining pterygoids appeared intact. The temporal mandibular joints are arthritic but not dislocated. The bony mandible showed no identifiable fracture. There is extensive soft tissue injury and gas about the right cheek. Pneumocephalus is again noted with air involving a partially aerated left petrous apices extending into the left carotid canal and cavernous sinuses as well as along the posterior aspect of the right orbital apex. No distortion of either globe. No post septal or retrobulbar hematoma there is preseptal orbital soft tissue swelling and hemorrhage. IMPRESSION: CT head: Posttraumatic pneumocephalus and hemo sinus. No skull fracture or intracerebral hemorrhage. CT cervical spine: Type II odontoid fracture without angulation or displacement of the distal tip. There is heredia-cervical degenerative changes. No additional cervical spinal fracture found. CT FACIAL BONES: Extensive nasal bone, nasal septal and maxillary wall fractures with severe paranasal hemo-sinus. Fractures of the ethmoid air cells are presumed. There is likely fracture of the posterolateral left sphenoid wall accounting for the pneumocephalus. Air tracks along the carotid canal on the left as well as in the cavernous sinus. In light of the cervical spine fracture as well as these findings, CT angiographic study of the neck and head recommended to exclude arterial injury. Fracture of the lateral plate of the left pterygoid. No identifiable temporal bone fracture. Pertinent results discussed by phone with the Emergency Room physician prior to this dictation. Dictated by: Dictated on workstation # [id number]
[2019-08-27] MEDS ORDERED: NS (IVPB) 250 ML IV ONE (10:00)
[2019-08-27] MEDS ORDERED: NS (IVPB) 250 ML ONE (10:00)
[2019-08-27 10:36] VITALS: BP 146/83
[2019-08-27 10:44] VITALS: BP 146/83
== END 2019-08-27 10:44 | disposition short-term general hospital (02) ==
LOC: EDUNIT# 07:53 → ER 07:54
DX: S12.112A Nondisplaced Type II dens fracture, initial encounter for closed fracture (principal); S02.92XA Unspecified fracture of facial bones, initial encounter for closed fracture; S69.91XA Unspecified injury of right wrist, hand and finger(s), initial encounter; G93.89 Other specified disorders of brain; R04.0 Epistaxis; F41.9 Anxiety disorder, unspecified; R40.2142 Coma scale, eyes open, spontaneous, at arrival to emergency department; R40.2252 Coma scale, best verbal response, oriented, at arrival to emergency department; R40.2362 Coma scale, best motor response, obeys commands, at arrival to emergency department; Z85.828 Personal history of other malignant neoplasm of skin; Z88.2 Allergy status to sulfonamides; Z88.5 Allergy status to narcotic agent; Z90.49 Acquired absence of other specified parts of digestive tract; W19.XXXA Unspecified fall, initial encounter
CPT/HCPCS: 36415; 36430; 70450; 70486; 72125; 80053; 83735; 84484; 85007; 85027; 85610; 85730; 86850; 86900; 86901; 86920; 93041; 96361; 96365; 96366; 96375; 96376